=== PATIENT | female | born 1995 | race Caucasian/White ===

== ENCOUNTER 2018-02-25 01:54 | Emergency (ER) | payer OTHER ==
[2018-02-25 02:22] VITALS: BP 137/96
[2018-02-25] MEDS ORDERED: LIDOCAINE 2% URO-JET 5 ML KIT MM ONE (02:51)
[2018-02-25] MEDS ORDERED: HYDROCODONE/ACETAMINOPHEN 5-325 MG (6 TAB/ER DISP) PO PRN (02:51)
--- NOTE | 2018-02-25 02:58 | ER Document Report ---
HPI - HPI Patient complains to provider of: Vaginal pain Pain Level: 5 Context: Patient is a 22-year-old female comes emergency department for chief complaint of vaginal pain. She states she was having rough intercourse 3 days ago when she started having some bleeding and sharp pain afterwards in the vaginal area. She denies any having any pelvic pain or any abdominal pain. She states bleeding was minimal. She states she went to [facility] and he was evaluated, told that she had herpes and placed on acyclovir, she is also currently taking amoxicillin for diagnosis of strep pharyngitis. She states the area continues to hurt, the area sensitive and hurts when she urinates because of the urine touching the sensitive sides. She denies any fever, discharge, additional bleeding, flank pain, or any other concerning symptoms. Significant other at bedside. Past Medical History - General Information source: Patient - Social History Smoking Status: Never Smoker Frequency of alcohol use: None Drug Abuse: None Lives with: Family Family History: Reviewed & Not Pertinent - Medical History Medical History: Negative Surgical Hx: Negative - Immunizations Immunizations up to date: Yes Hx Diphtheria, Pertussis, Tetanus Vaccination: Yes Vertical Provider Document - CONSTITUTIONAL General Appearance: WD/WN, No Apparent Distress - INFECTION CONTROL TRAVEL OUTSIDE OF THE [place] IN LAST 30 DAYS: No - HEENT HEENT: Atraumatic, Normocephalic - NECK Neck: Normal Inspection - RESPIRATORY Respiratory: Breath Sounds Normal, No Respiratory Distress - CARDIOVASCULAR Cardiovascular: Regular Rate, Regular Rhythm - GI/ABDOMEN Gastrointestinal: Abdomen Soft, Abdomen Non-Tender - REPRODUCTIVE Female Genitalia: negative: Normal Inspection - There are healing abrasions over the anterior aspect of the labia majora on both sides, no current bleeding , no vesicles, no induration or fluctuance, unremarkable external exam otherwise. Kim GALVEZ present as social work administrator during pelvic examination. Course - Re-evaluation Re-evalutation: Patient with abrasions but no evidence of abscess or infection. Soft abdomen with no complaints of the abdomen. No evidence of HSV outbreak which patient was specifically asked about as well. Provided with lidocaine for symptom management, discussed expectations, follow-up, return precautions. Patient and significant other state understanding and agreement. - Vital Signs Vital signs: Temp Pulse Resp BP Pulse Ox 98.0 F 101 H 16 137/96 H 98 02/25/18 02:20 02/25/18 02:20 02/25/18 02:20 02/25/18 02:20 02/25/18 02:20 Discharge - Discharge Clinical Impression: Abrasion of labia Qualifiers: Encounter type: initial encounter Qualified Code(s): S30.814A - Abrasion of vagina and vulva, initial encounter Condition: Stable Disposition: HOME, SELF-CARE Additional Instructions: Your examination is consistent with healing abrasions, no other abnormality is seen, clean gently with soap and water, apply the topical lidocaine as needed for pain, this should resolve with time. Follow-up with primary care for additional evaluation and management. Return for any concerning symptoms including swelling, increased pain, fever, or any other concerning or worsening symptoms. Prescriptions: Lidocaine HCl [Aspercreme] 76.5 gm TP ASDIR PRN #1 cream..g. PRN Reason: Referrals: SAVANNA BOTELLO DO [Primary Care Provider] - Follow up as needed
== END 2018-02-25 03:07 | disposition home or self-care (01) ==
LOC: ER 01:54
DX: S30.814A Abrasion of vagina and vulva, initial encounter (principal); R10.2 Pelvic and perineal pain; X58.XXXA Exposure to other specified factors, initial encounter
CPT/HCPCS: 99283; J3490

== ENCOUNTER 2018-10-17 20:05 | Emergency (ER) | payer OTHER ==
[2018-10-17 21:13] LABS: A TYPE INFLUENZA AG NEGATIVE (NEGATIVE); B INFLUENZA AG NEGATIVE (NEGATIVE)
[2018-10-17] MEDS ORDERED: DEXAMETHASONE SOD PHOS INJ 10 MG/1 ML VIAL IM ONE (21:53)
[2018-10-17] MEDS ORDERED: DEXAMETHASONE 4 MG TABLET PO ONE (21:56)
--- NOTE | 2018-10-17 21:56 | ER Document Report ---
HPI - HPI Patient complains to provider of: sore throat, cough, wheezing, sinus pain Time Seen by Provider: 10/17/18 20:51 Pain Level: 2 Context: Patient is a 22-year-old female that comes to the emergency department for chief complaint of 4 days of cough, congestion, throat pain, developing sinus pain, and intermittent wheezing. She smokes, she denies history of asthma, she denies any daily prescribed medications other than Zoloft. She has had the influenza vaccine. No obvious sick contacts. She denies shortness of breath, chest pain, headache, difficulty swallowing. - CONSTITUTIONAL Constitutional: REPORTS: Fever - EENT EENT: REPORTS: Sore Throat, Ear Pain - NEURO Neurology: REPORTS: Headache - RESPIRATORY Respiratory: REPORTS: Trouble Breathing, Coughing - GASTROINTESTINAL Gastrointestinal: REPORTS: Abdominal Pain Past Medical History - General Information source: Patient - Social History Smoking Status: Never Smoker Frequency of alcohol use: None Drug Abuse: None Lives with: Family Family History: Reviewed & Not Pertinent Patient has suicidal ideation: No Patient has homicidal ideation: No Renal/ Medical History: Denies: Hx Peritoneal Dialysis Surgical Hx: Negative - Immunizations Immunizations up to date: Yes Hx Diphtheria, Pertussis, Tetanus Vaccination: Yes Vertical Provider Document - CONSTITUTIONAL General Appearance: WD/WN, No Apparent Distress, Obese - INFECTION CONTROL TRAVEL OUTSIDE OF THE [place] IN LAST 30 DAYS: No - HEENT HEENT: Atraumatic, Normocephalic. negative: Normal ENT Exam - Mild pharyngeal erythema, tenderness over the maxillary sinuses, some sinus congestion, otherwise unremarkable oropharyngeal exam - NECK Neck: Normal Inspection - RESPIRATORY Respiratory: Breath Sounds Normal, No Respiratory Distress. negative: Wheezing - CARDIOVASCULAR Cardiovascular: Regular Rate, Regular Rhythm - GI/ABDOMEN Gastrointestinal: Abdomen Soft, Abdomen Non-Tender - BACK Back: Normal Inspection - MUSCULOSKELETAL/EXTREMETIES Musculoskeletal/Extremeties: MAEW, FROM, Non-Tender - NEURO Level of Consciousness: Awake, Alert, Appropriate - DERM Integumentary: Warm, Dry, No Rash Course - Re-evaluation Re-evalutation: Patient with maxillary sinus pain, cough and congestion for days, intermittent wheezing reported, no wheezing on exam. Has had some improvement of symptoms at home with albuterol. Provided with spacer and albuterol inhaler refill, dexamethasone, appears to be viral upper respiratory infection and developing sinusitis. No concerning post vaccination was rechecked because patient has absolutely no distress and clear lung sounds, this was 95%. No fever. Low suspicion of pneumonia. Patient likely has asthma. Discussed treatments, follow-up, and return precautions with patient in detail. She states understanding and agreement. - Vital Signs Vital signs: Temp Pulse Resp BP Pulse Ox 97.9 F 94 18 146/97 H 92 10/17/18 20:12 10/17/18 20:12 10/17/18 20:12 10/17/18 20:12 10/17/18 20:12 Discharge - Discharge Clinical Impression: Upper respiratory infection Qualifiers: URI type: unspecified URI Qualified Code(s): J06.9 - Acute upper respiratory infection, unspecified Sinusitis Qualifiers: Sinusitis location: maxillary Chronicity: acute Recurrence: non-recurrent Qualified Code(s): J01.00 - Acute maxillary sinusitis, unspecified Condition: Stable Disposition: HOME, SELF-CARE Additional Instructions: Your strep and influenza tests are negative. Your evaluation is consistent with a viral upper respiratory infection/ bronchitis. Also have a developing sinus infection component. Stop smoking. Use the spacer with your inhaler every 4-6 hours as needed for wheezing/cough. He has been treated with dexamethasone. You can take over-the- counter remedies as well, hydrate, rest. Symptoms will slowly resolve. Follow-up with primary care. Return for any concerning symptoms including rapid or labored breathing, spiking fever, or any other concerning or worsening symptoms. Prescriptions: Albuterol Sulfate [Proair HFA Inhalation Aerosol 8.5 gm MDI] 2 puff IH Q4H PRN # 1 mdi PRN Reason: Amoxicillin Trihydrate [Amoxil 875 mg Tablet] 1 tab PO BID #14 tablet Forms: Elevated Blood Pressure Referrals: YOAN CHIU MD [Primary Care Provider] - Follow up as needed
[2018-10-17 22:10] VITALS: BP 137/81
== END 2018-10-17 22:09 | disposition home or self-care (01) ==
LOC: ER 20:05
DX: J02.9 Acute pharyngitis, unspecified (principal); J01.00 Acute maxillary sinusitis, unspecified; R06.2 Wheezing; R05 Cough
CPT/HCPCS: 87070; 87077; 87804; 87880; 99283

== ENCOUNTER 2018-10-19 18:20 | Emergency (ER) | payer OTHER ==
[2018-10-19] MEDS ORDERED: RACEPINEPHRINE HCL 2.25% NEB 0.5 ML AMPUL NEB ONE (18:35)
[2018-10-19] MEDS ORDERED: METHYLPREDNISOLONE INJ 125 MG/2 ML SDV IM ONE (18:35)
--- NOTE | 2018-10-19 18:36 | ER Document Report ---
ED Medical Screen (RME) - General Chief Complaint: Allergic Reaction Stated Complaint: EYES ITCHING,FACIAL SWELLING Time Seen by Provider: 10/19/18 18:31 Notes: 22 years old female was taking amoxicillin and developed allergic reaction with difficulty in breathing and swelling as well as redness throughout the whole body. Was seen by the primary care physician and was given Solu-Medrol this morning around 9:00. But towards the evening she started having the sensation of throat closing came back. Therefore present to the ED. On examination diffuse erythema as well as stridor was noted which is mild TRAVEL OUTSIDE OF THE [place] IN LAST 30 DAYS: No - Related Data Allergies/Adverse Reactions: amoxicillin Allergy (Verified 10/19/18 18:29) Past Medical History - Social History Chew tobacco use (# tins/day): No Frequency of alcohol use: Occasional Drug Abuse: None Pulmonary Medical History: Reports: Hx Bronchitis Renal/ Medical History: Denies: Hx Peritoneal Dialysis - Immunizations Immunizations up to date: Yes Hx Diphtheria, Pertussis, Tetanus Vaccination: Yes Physical Exam - Vital signs Vitals: Temp Pulse Resp BP Pulse Ox 97.6 F 97 19 140/83 H 95 10/19/18 18:26 10/19/18 18:26 10/19/18 18:26 10/19/18 18:26 10/19/18 18:26 Course - Vital Signs Vital signs: Temp Pulse Resp BP Pulse Ox 97.6 F 97 19 140/83 H 95 10/19/18 18:26 10/19/18 18:26 10/19/18 18:26 10/19/18 18:26 10/19/18 18:26 Doctor's Discharge - Discharge Referrals: YOAN CHIU MD [Primary Care Provider] - Follow up as needed
[2018-10-19] MEDS ORDERED: EPINEPHRINE INJ/PF 1 MG/1 ML AMPULE IM ONE (19:11)
[2018-10-19] MEDS ORDERED: NORMAL SALINE 1000 ML 1,000 ML IV ONE (19:12)
--- NOTE | 2018-10-19 19:14 | ER Document Report ---
ED Allergic Reaction - General Chief Complaint: Allergic Reaction Stated Complaint: EYES ITCHING,FACIAL SWELLING Time Seen by Provider: 10/19/18 18:31 Mode of Arrival: Ambulatory Information source: Patient TRAVEL OUTSIDE OF THE [place] IN LAST 30 DAYS: No - HPI Patient complains to provider of: allergic reaction Onset: Other - 22-year-old female presents for evaluation of what she feels like is an allergic reaction after having been started on amoxicillin for sinusitis and bronchitis 2 days prior. She noted that she began to have some sensation of hives and then fullness in her throat she presented to an urgent care which time they gave her a steroid and told her to go to the emergency room. She notes that she is got wheezing in her chest, itchiness in her skin swelling in her throat. Has never had any issues in the past like this. Nothing is made it better - Related Data Allergies/Adverse Reactions: amoxicillin Allergy (Verified 10/19/18 18:29) Past Medical History - General Information source: Patient - Social History Smoking Status: Former Smoker Chew tobacco use (# tins/day): No Frequency of alcohol use: Occasional Drug Abuse: None Family History: Reviewed & Not Pertinent Patient has suicidal ideation: No Patient has homicidal ideation: No Pulmonary Medical History: Reports: Hx Bronchitis Renal/ Medical History: Denies: Hx Peritoneal Dialysis - Immunizations Immunizations up to date: Yes Hx Diphtheria, Pertussis, Tetanus Vaccination: Yes Review of Systems - Review of Systems -: Yes All other systems reviewed and negative Physical Exam - Vital signs Vitals: Temp Pulse Resp BP Pulse Ox 97.6 F 97 19 140/83 H 95 10/19/18 18:26 10/19/18 18:26 10/19/18 18:26 10/19/18 18:26 10/19/18 18:26 - General General appearance: Anxious In distress: Mild - HEENT Head: Normocephalic Eyes: Normal Conjunctiva: Normal Cornea: Normal Extraocular movements intact: Yes Eyelashes: Normal Pupils: PERRL - Respiratory Respiratory status: Tachypnea Chest status: Nontender Breath sounds: Wheezing Chest palpation: Normal - Cardiovascular Rhythm: Tachycardia Heart sounds: Normal auscultation Murmur: No - Abdominal Inspection: Normal Distension: No distension Tenderness: Nontender - Back Back: Normal - Extremities General upper extremity: Normal inspection, Nontender, Normal ROM, Normal strength General lower extremity: Normal inspection, Nontender, Normal ROM, Normal strength - Neurological Neuro grossly intact: Yes Cognition: Normal Orientation: AAOx4 [place] Coma Scale Eye Opening: Spontaneous Óscar Coma Scale Verbal: Oriented [place] Coma Scale Motor: Obeys Commands Óscar Coma Scale Total: 15 Speech: Normal Cranial nerves: Normal Motor strength normal: LUE, RUE, LLE, RLE - Psychological Associated symptoms: Normal affect, Normal mood Course - Re-evaluation Re-evalutation: ms ortega presents with signs and symptoms suggestive of anaphylaxis, she is good cutaneous manifestatiosn as well as audible wheezing in the sensation of throat closing. Will administer EpiPen, will plan for monitoring, will administer steroids, patient's already taken Pepcid and Benadryl prior to arrival. Will defer. Following administration of EpiPen patient's symptoms essentially resolved. She was monitored in the emergency department for 3 hours thereafter. She did not have any return of symptoms. She will be discharged with a prescription for an EpiPen as well as prescription for prednisone 50 mg/day for 5 days. She was given return precautions and instructions related to the use of EpiPen. - Vital Signs Vital signs: Temp Pulse Resp BP Pulse Ox 98.2 F 97 18 132/84 H 95 10/19/18 22:02 10/19/18 18:26 10/19/18 22:02 10/19/18 22:02 10/19/18 22:02 Critical Care Note - Critical Care Note Total time excluding time spent on procedures (mins): 30 Discharge - Discharge Clinical Impression: Wheezing Anaphylaxis Qualifiers: Encounter type: sequela Qualified Code(s): T78.2XXS - Anaphylactic shock, unspecified, sequela Medication reaction Qualifiers: Encounter type: initial encounter Qualified Code(s): T50.905A - Adverse effect of unspecified drugs, medicaments and biological substances, initial encounter Condition: Good Disposition: HOME, SELF-CARE Instructions: Acute Allergic Reaction ([facility]), Acute Allergic Reaction to Drugs ( [facility]) Additional Instructions: Your were seen today in the emergency department for you allergic reaction to amoxicillin. You had an evaluation including a physical exam as well as administration of steroids, the administration of an EpiPen. You should use Benadryl as needed for itching, he should use the EpiPen in case you have worsening wheezing shortness of breath or other symptoms. Do not take any penicillin containing antibiotics moving forward. Return for worsening fevers or chills inability to breathe or pain. Use the EpiPen provided to you in case of an allergic reaction moving forward in which he feel like he cannot breathe. Prescriptions: Epinephrine [Epipen 2-Maxx] 0.3 mg IJ PRN PRN #1 auto.injct PRN Reason: allergic reaction Prednisone 50 mg PO DAILY 5 Days #5 tablet Referrals: YOAN CHIU MD [Primary Care Provider] - Follow up as needed
[2018-10-19 22:23] VITALS: BP 132/84
== END 2018-10-19 22:23 | disposition home or self-care (01) ==
LOC: ER 18:20
DX: T78.2XXS Anaphylactic shock, unspecified, sequela (principal); T50.905A Adverse effect of unspecified drugs, medicaments and biological substances, initial encounter; R06.2 Wheezing; Z87.891 Personal history of nicotine dependence
CPT/HCPCS: 94640; 99284; 96372; J0171; J2930; J3490

== ENCOUNTER 2018-12-17 15:50 | Emergency (ER) | payer OTHER ==
--- NOTE | 2018-12-17 16:24 | ER Document Report ---
ED Medical Screen (RME) - General Chief Complaint: Vaginal Bleeding Stated Complaint: HEAVY VAGINAL BLEEDING Time Seen by Provider: 12/17/18 16:19 Primary Care Provider: YOAN CHIU MD [Primary Care Provider] - Follow up as needed Notes: This 23-year-old female patient comes emergency room reporting onset of a period 2 days ago, that got heavy yesterday. She reports she is having heavy flow, clots, fatigue, cramps in her lower abdomen and low back pain. She does have the ParaGard IUD. I have greeted and performed a rapid initial assessment of this patient. A comprehensive ED assessment and evaluation of the patient, analysis of test results and completion of the medical decision making process will be conducted by additional ED providers. TRAVEL OUTSIDE OF THE [place] IN LAST 30 DAYS: No - Related Data Allergies/Adverse Reactions: amoxicillin Allergy (Verified 10/19/18 18:29) Past Medical History Pulmonary Medical History: Reports: Hx Bronchitis Renal/ Medical History: Denies: Hx Peritoneal Dialysis - Immunizations Immunizations up to date: Yes Hx Diphtheria, Pertussis, Tetanus Vaccination: Yes Physical Exam - Vital signs Vitals: Temp Pulse Resp BP Pulse Ox 98.1 F 102 H 16 139/107 H 100 12/17/18 15:57 12/17/18 15:57 12/17/18 15:57 12/17/18 15:57 12/17/18 15:57 Course - Vital Signs Vital signs: Temp Pulse Resp BP Pulse Ox 98.1 F 102 H 16 139/107 H 100 12/17/18 15:57 12/17/18 15:57 12/17/18 15:57 12/17/18 15:57 12/17/18 15:57 Doctor's Discharge - Discharge Referrals: YOAN CHIU MD [Primary Care Provider] - Follow up as needed
[2018-12-17 16:48] LABS: ABSOLUTE BASOPHILS # (AUTO) 0.1 10^3/uL (0.0-0.2); ABSOLUTE EOSINOPHILS # (AUTO) 0.7 10^3/uL (0.0-0.6); ABSOLUTE LYMPHOCYTES (AUTO) 2.2 10^3/uL (0.5-4.7); ABSOLUTE MONOCYTES (AUTO) 0.6 10^3/uL (0.1-1.4); ABSOLUTE NEUT (AUTO) 5.2 10^3/uL (1.7-8.2); BASOPHILS % (AUTO) 1.2 % (0-2); HEMATOCRIT 41.9 % (36.0-47.0); HEMOGLOBIN 14.3 g/dL (12.0-15.5); LYMPHOCYTES % (AUTO) 24.9 % (13-45); MEAN CORPUSCULAR HGB CONC 34.3 g/dL (32.0-36.0); MEAN CORPUSCULAR VOLUME 85 fl (80-97); MONOCYTES % (AUTO) 6.5 % (3-13); PLATELET COUNT 533 10^3/uL (150-450); RED BLOOD COUNT 4.94 10^6/uL (3.72-5.28); RED CELL DISTRIBUTION WIDTH 14.9 % (11.5-14.0); SEGMENTED NEUTROPHILS % (AUTO) 59.4 % (42-78); TOTAL CELLS COUNTED % (AUTO) 100 %; WHITE BLOOD COUNT 8.7 10^3/uL (4.0-10.5)
[2018-12-17 17:03] LABS: AMORPHOUS SEDIMENT,URINE TRACE /HPF; APPEARANCE,URINE TURBID; BILIRUBIN,URINE NEGATIVE (NEGATIVE); COLOR,URINE YELLOW; GLUCOSE, URINE NEGATIVE (NEGATIVE); KETONES,URINE NEGATIVE (NEGATIVE); LEUKOCYTE ESTERASE,URINE NEGATIVE (NEGATIVE); NITRITE,URINE NEGATIVE (NEGATIVE); PROTEIN,URINE NEGATIVE (NEGATIVE); URINE SPECIFIC GRAVITY 1.016
[2018-12-17 17:18] LABS: ALANINE AMINOTRANSFERASE 38 U/L (9-52); ALBUMIN 4.7 g/dL (3.5-5.0); ALKALINE PHOSPHATASE 117 U/L (38-126); ANION GAP 12 (5-19); ASPARTATE AMINO TRANSFERASE 40 U/L (14-36); BILIRUBIN,DIRECT 0.5 mg/dL (0.0-0.4); BILIRUBIN,TOTAL 0.6 mg/dL (0.2-1.3); BLOOD UREA NITROGEN 11 mg/dL (7-20); CALCIUM 9.8 mg/dL (8.4-10.2); CARBON DIOXIDE 23 mmol/L (22-30); CHLORIDE 105 mmol/L (98-107); GLUCOSE 91 mg/dL (75-110); SODIUM 140.1 mmol/L (137-145); TOTAL PROTEIN 8.2 g/dL (6.3-8.2)
--- NOTE | 2018-12-17 19:10 | ER Document Report ---
ED GI/ - General Chief Complaint: Vaginal Bleeding Stated Complaint: HEAVY VAGINAL BLEEDING Time Seen by Provider: 12/17/18 16:19 Primary Care Provider: YOAN CHIU MD [Primary Care Provider] - Follow up as needed Notes: Patient is an otherwise healthy 23-year-old female who presents the emergency department with chief complaint of heavy vaginal bleeding over the last 2 days. Patient reports that she has had heavier periods than usual over the last 6 months after she had a ParaGard IUD inserted. Patient reports over the last 2 days she has been soaking through approximately 6-8 pads per day. Denies pass age of any clots. Denies possibility of . Patient denies any abdominal or pelvic pain. TRAVEL OUTSIDE OF THE [place] IN LAST 30 DAYS: No - Related Data Allergies/Adverse Reactions: amoxicillin Allergy (Verified 10/19/18 18:29) Past Medical History - General Information source: Patient - Social History Smoking Status: Current Every Day Smoker Frequency of alcohol use: Occasional Drug Abuse: None Family History: Reviewed & Not Pertinent Patient has suicidal ideation: No Patient has homicidal ideation: No Pulmonary Medical History: Reports: Hx Bronchitis Renal/ Medical History: Denies: Hx Peritoneal Dialysis Surgical Hx: Negative - Immunizations Immunizations up to date: Yes Hx Diphtheria, Pertussis, Tetanus Vaccination: Yes Review of Systems - Review of Systems Constitutional: No symptoms reported EENT: No symptoms reported Cardiovascular: No symptoms reported Respiratory: No symptoms reported Gastrointestinal: No symptoms reported Genitourinary: No symptoms reported Female Genitourinary: Heavy/abnormal periods Musculoskeletal: No symptoms reported Skin: No symptoms reported Hematologic/Lymphatic: No symptoms reported Neurological/Psychological: No symptoms reported Physical Exam - Vital signs Vitals: Temp Pulse Resp BP Pulse Ox 98.1 F 102 H 16 139/107 H 100 12/17/18 15:57 12/17/18 15:57 12/17/18 15:57 12/17/18 15:57 12/17/18 15:57 - Notes Notes: PHYSICAL EXAMINATION: GENERAL: Well-appearing, well-nourished and in no acute distress. HEAD: Atraumatic, normocephalic. EYES: Pupils equal round and reactive to light, extraocular movements intact, conjunctiva are normal. ENT: Nares patent, oropharynx clear without exudates. Moist mucous membranes. NECK: Normal range of motion, supple without lymphadenopathy LUNGS: Breath sounds clear to auscultation bilaterally and equal. No wheezes rales or rhonchi. HEART: Regular rate and rhythm without murmurs ABDOMEN: Soft, nontender, nondistended abdomen. No guarding, no rebound. No masses appreciated. Female : No CVA tenderness. Speculum exam reveals mild bleeding from the cervical office, no adnexal or cervical motion tenderness. Musculoskeletal: Normal range of motion, no pitting or edema. No cyanosis. NEUROLOGICAL: Cranial nerves grossly intact. Normal speech, normal gait. Normal sensory, motor exams PSYCH: Normal mood, normal affect. SKIN: Warm, Dry, normal turgor, no rashes or lesions noted. Course - Re-evaluation Re-evalutation: Patient was seen by a provider in triage who initiated the workup. At the time of my evaluation patient is a pleasant, alert and oriented 23-year-old female with no acute distress noted. Her CBC, CMP and urinalysis are on room couple. H&H is normal. A pelvic exam was performed and reveals a small amount of active bleeding but no active hemorrhage. Patient does have an [employer] that she can follow-up with. I encouraged her to call them this morning to schedule an appointment. I further gave the patient to ED return precautions to include heavy bleeding through more than 1 pad per hour for greater than 4 hours or development of pain. - Vital Signs Vital signs: Temp Pulse Resp BP Pulse Ox 98.1 F 94 14 140/90 H 99 12/17/18 15:57 12/17/18 19:22 12/17/18 19:22 12/17/18 19:22 12/17/18 19:22 - Laboratory Result Diagrams: 12/17/18 16:27 12/17/18 16:27 Laboratory results interpreted by me: 12/17/18 12/17/18 12/17/18 16:25 16:27 16:27 RDW 14.9 H Plt Count 533 H Eosinophils % 8.0 H Absolute Eosinophils 0.7 H Direct Bilirubin 0.5 H AST 40 H Urine Blood LARGE H Urine Urobilinogen 2.0 H Discharge - Discharge Clinical Impression: Vaginal bleeding Condition: Stable Disposition: HOME, SELF-CARE Additional Instructions: Vaginal Bleeding You are having an episode of abnormal bleeding. Causes of abnormal vaginal bleeding can include miscarriage or tubal , tumors such as cancer or benign fibroids, medication effects, or hormone imbalance. Testing can eliminate unsuspected , tumors, or infection as a cause. "Dysfunctional uterine bleeding" is due to hormone imbalance, and is especially common at times when the normal cycle is disturbed -- whether by recent , use of control pills or hormones, or impending menopau se. If the bleeding is innocent, most commonly a short course of hormones is given to restore the uterus to normal. Sometimes, the normal menstrual cycle corrects itself naturally. Sometimes, brief hormone therapy, or even a D&C is required. Your physician will advise you. Treatment for anemia may be required if bleeding is severe. You should rest and avoid intercourse until the bleeding is controlled. Call the doctor or return for re-examination if you feel faint, have increasing pain, or have a major increase in the amount of bleeding. Return if you develop worsening vaginal bleeding or bleeding through more than 1 pad every hour for more than 4 hours. Call and schedule follow-up with Dr. Ambrose. Referrals: YOAN CHIU MD [Primary Care Provider] - Follow up as needed
[2018-12-17 19:24] VITALS: BP 140/90
== END 2018-12-17 19:22 | disposition home or self-care (01) ==
LOC: ER 15:50
DX: N93.8 Other specified abnormal uterine and vaginal bleeding (principal); F17.200 Nicotine dependence, unspecified, uncomplicated; Z97.5 Presence of (intrauterine) contraceptive device; Z88.0 Allergy status to penicillin
CPT/HCPCS: 36415; 80053; 81001; 84703; 85025; 99284